=== PATIENT | female | born 1960 | race Asian ===

== ENCOUNTER 2016-08-09 10:27 | Outpatient (CLI) | payer OTHER, BC ==
[~2016-08-09 10:27] MED LIST: AMBIEN5 MG PO; INSU100P SC; LEVEMIR SC
[2016-08-09 11:36] LABS: PLATELET COUNT 163 K/uL (152-353)
[2016-08-09 11:40] LABS: POTASSIUM 6.1 mmol/L (3.6-5.2)
[2016-08-09 14:01] LABS: PARTIAL THROMBOPLASTIN TIME 28.1 SECONDS (24.5-33.6)
== END 2016-08-09 22:58 | disposition home or self-care (01) ==
LOC: LABW 10:27
PROVIDERS: Orthopaedic Surgery Hand Surgery
DX: I42.8 Other cardiomyopathies (principal); Z01.812 Encounter for preprocedural laboratory examination; Z01.810 Encounter for preprocedural cardiovascular examination; Z01.811 Encounter for preprocedural respiratory examination; G56.01 Carpal tunnel syndrome, right upper limb; M65.341 Trigger finger, right ring finger; M65.331 Trigger finger, right middle finger; R73.9 Hyperglycemia, unspecified
CPT/HCPCS: 80048; 83036; 85027; 85610; 85730; 87070; 93005

== ENCOUNTER 2016-08-29 10:55 | Outpatient (CLI) | payer OTHER, BC ==
[2016-08-29 11:44] LABS: POTASSIUM 5.8 mmol/L (3.6-5.2)
== END 2016-08-29 20:10 | disposition home or self-care (01) ==
LOC: LABW 10:55
PROVIDERS: Orthopaedic Surgery Hand Surgery
DX: Z01.812 Encounter for preprocedural laboratory examination (principal); Z01.811 Encounter for preprocedural respiratory examination; E11.9 Type 2 diabetes mellitus without complications
CPT/HCPCS: 36415; 80048; 83036

== ENCOUNTER 2016-11-03 14:20 | Outpatient (CLI) | payer OTHER, BC | END 2016-11-03 20:20 | disposition home or self-care (01) | LOC: LAB 14:20 | DX: E87.5 Hyperkalemia (principal) | CPT/HCPCS: 84132 ==

== ENCOUNTER 2016-11-10 12:00 | Outpatient (CLI) | payer OTHER, BC | END 2016-11-10 19:48 | disposition home or self-care (01) | LOC: LAB 12:00 | DX: D64.89 Other specified anemias (principal) | CPT/HCPCS: 85014; 85018 ==

== ENCOUNTER 2016-11-17 10:41 | Outpatient (CLI) | payer OTHER, BC | END 2016-11-17 19:07 | disposition home or self-care (01) | LOC: LAB 10:41 | DX: D64.89 Other specified anemias (principal) | CPT/HCPCS: 85018 ==

== ENCOUNTER 2017-08-09 10:05 | Outpatient (CLI) | payer OTHER | END 2017-08-09 19:55 | disposition home or self-care (01) | LOC: RESP 10:05 | DX: Z01.818 Encounter for other preprocedural examination (principal); N18.6 End stage renal disease | CPT/HCPCS: 36415; 82565; 84520; 93306 ==

== ENCOUNTER 2017-10-06 10:58 | Outpatient (CLI) | payer OTHER, BC | END 2017-10-06 18:00 | disposition home or self-care (01) | LOC: RAD 10:58 | DX: R05 Cough (principal) ==

== ENCOUNTER 2017-12-16 12:42 | Outpatient (CLI) | payer OTHER | END 2017-12-16 19:13 | disposition home or self-care (01) | LOC: LAB 12:42 | DX: N18.6 End stage renal disease (principal) | CPT/HCPCS: 82374 ==

== ENCOUNTER 2017-12-30 14:23 | Emergency (ER) | payer OTHER, BC ==
[~2017-12-30] VITALS: Ht 160 cm; Wt 63.5 kg
[2017-12-30 14:30] VITALS: TEMP 97.9
[2017-12-30 16:23] VITALS: BP 191/63
== END 2017-12-30 16:46 | disposition home or self-care (01) ==
LOC: ED 14:23
DX: G44.89 Other headache syndrome (principal)
CPT/HCPCS: 99282

== ENCOUNTER 2018-03-20 13:58 | Outpatient (CLI) | payer OTHER, BC | END 2018-03-20 23:55 | disposition home or self-care (01) | LOC: MAMMO 13:58 | DX: Z12.31 Encounter for screening mammogram for malignant neoplasm of breast (principal) ==

== ENCOUNTER 2018-05-14 08:26 | Day surgery (SDC) | payer OTHER, BC ==
[2018-05-14 09:06] LABS: PLATELET COUNT 246 K/uL (152-353)
[2018-05-14 09:17] LABS: POTASSIUM 5.4 mmol/L (3.6-5.2)
== END 2018-05-14 11:50 | disposition home or self-care (01) ==
LOC: OR 08:26
PROVIDERS: Student in an Organized Health Care Education/Training Program
PROC: 0DJD8ZZ Inspection of Lower Intestinal Tract, Via Natural or Artificial Opening Endoscopic (ICD-10-PCS; principal; 2018-05-14)
DX: Z12.11 Encounter for screening for malignant neoplasm of colon (principal); E11.9 Type 2 diabetes mellitus without complications
CPT/HCPCS: 80053; 85027; J2001; J2704; J2765

== ENCOUNTER 2018-08-20 13:20 | Outpatient (CLI) | payer OTHER, BC ==
[2018-08-20 14:23] LABS: POTASSIUM 5.6 mmol/L (3.6-5.2)
== END 2018-08-20 19:18 | disposition home or self-care (01) ==
LOC: LABW 13:20
PROVIDERS: Specialist
DX: I10 Essential (primary) hypertension (principal); E78.5 Hyperlipidemia, unspecified; I25.10 Atherosclerotic heart disease of native coronary artery without angina pectoris; Z79.899 Other long term (current) drug therapy
CPT/HCPCS: 36415; 80053; 80061